=== PATIENT | male | born 1955 | race Two or more races ===

== ENCOUNTER 2020-06-14 14:44 | Emergency (ER) | payer OTHER ==
[~2020-06-14] VITALS: Ht 162.6 cm; Wt 77.4 kg
--- NOTE | 2020-06-14 15:47 | NUR ---
medicare interviewer note: Pt to room from lobby
--- NOTE | 2020-06-14 16:10 | NUR ---
THIS IS A 65 YO M W/ C/O INCREASING EPISODES OF ANXIETY. PT REPORTS HAS BEEN HAVING WHAT HE BELIEVES TO BE PANIC ATTACKS FOR ABOUT 1 YEARS, INCRESING IN FREQUENCY. PT REPORTS HAD ANXIETY WHEN HE WAS YOUNGER BUT IS NOT CURRENTLY BEING TREATED. 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 PT A&OX4, COOPERATIVE. RESP EVEN AND UNLABORED, NADN. FAMILY AT BEDSIDE.
[2020-06-14] MEDS: LORazepam 1MG TABLET PO ONE ×2 (16:30→16:43)
[2020-06-14] MEDS ORDERED: LORazepam 1MG TABLET ONE (16:38)
--- NOTE | 2020-06-14 16:47 | NUR ---
PT REFUSED ATIVAN. 1MG PO TAB WASTED W/ YURIDIA MULLIGAN.
[2020-06-14 16:54] LABS: BASOPHILS % (AUTO) 1 % (0-1); EOSINOPHILS % (AUTO) 1 % (1-7); LYMPHOCYTES % (AUTO) 17 % (22-44); MD NO; MEAN CORPUSCULAR HEMOGLOBIN 31.9 pg (27.5-34.5); MEAN CORPUSCULAR HGB CONC 34.3 g/dL (33.2-36.2); MEAN PLATELET VOLUME 7.6 fL (7.4-10.4); MONOCYTES % (AUTO) 7 % (2-9); NEUTROPHILS % (AUTO) 75 % (42-75); PLATELET COUNT 279 x10^3/uL (130-400); RED BLOOD COUNT 5.08 x10^6/uL (4.38-5.82); RED CELL DISTRIBUTION WIDTH 13.4 % (9.4-14.8)
[2020-06-14 17:02] LABS: ALBUMIN 4.3 g/dL (3.4-5.0); ANION GAP 6 mmol/L (5-15); CALCIUM 8.8 mg/dL (8.5-10.1); CHLORIDE 106 mmol/L (98-107); CREATININE 0.93 mg/dL (0.7-1.3)
[2020-06-14 17:12] LABS: TROPONIN I < 0.015 ng/mL (0.000-0.045)
--- NOTE | 2020-06-14 17:21 | NUR ---
PT AMBULATED TO THE BR W/ A STEADY GAIT. RESP EVEN AND UNLABORED, NADN.
[2020-06-14 17:25] VITALS: BP 145/89
== END 2020-06-14 17:38 | disposition home or self-care (01) ==
LOC: ED 16:45
DX: F41.1 Generalized anxiety disorder (principal); R00.2 Palpitations; I51.7 Cardiomegaly
CPT/HCPCS: 36415; 71045; 80048; 82040; 84443; 84484; 85025; 93005; 99285